=== PATIENT | male | born 1960 | race Caucasian/White ===

== ENCOUNTER 2017-07-08 07:29 | Outpatient (CLI) | payer BC ==
[~2017-07-08] VITALS: Ht 180.3 cm; Wt 77.3 kg
--- NOTE | ~2017-07-08 | HEMODYNAMI ---
PATIENT:MARIA FERNANDA DEVRIES MEDICAL RECORD: [id number] : 64 LOCATION:D.CAT ADMISSION DATE: 07/08/17 Generatedon:07/08/201710:18 Patient name: MARIA FERNANDA DEVRIES Patient #: [id number] SSN: : 1960 Date of study: 07/08/2017 Page: Of Hemodynamic Procedure Report Patient Data Patient Demographics Procedure consent was obtained First Name: MARIA FERNANDA Gender: Male Last Name: JAYCOB : 1960 [facility] Initial: MCKAY Age: 57 year(s) Patient #: [id number] Race: Unknown Additional ID: [id number] Contact details Address: [address] [place] [address] State: [place] City: [place] Zip code: [address] Past Medical History Allergies: No known allergies Admission Admission Data Admission Date: 07/08/2017 Admission Time: 7:29 Admit Source: Other Lab Results Lab Result Date: 07/08/2017 Lab Result Time: 8:00 Biochemistry Name Units Result Min Max BUN mg/dl 20 --(----)*- 7 18 Creatinine mg/dl 1.1 --(--*-)-- 0.6 1.3 CBC Name Units Result Min Max Hematocrit % 43.7 --(*---)-- 42 54 Hemoglobin g/dl 14.8 --(-*--)-- 13.5 17.5 Procedure Procedure Types Cath Procedure Diagnostic Procedure [facility] w/Coronaries Procedure Description Procedure Date Procedure Date: 07/08/2017 Procedure Start Time: 10:10 Procedure End Time: 10:18 Procedure Staff Name Function Boom Schultz MD Performing Physician Tony Ramon RT Monitor Buddy Rodrigez RN Nurse Ruth Melgar RT Scrub Procedure Data Cath Procedure Fluoroscopy Diagnostic fluoroscopy Total fluoroscopy Time: 0.9 time: 0.9 min min Diagnostic fluoroscopy Total fluoroscopy dose: 270 dose: 270 mGy mGy Contrast Material Contrast Material Type Amount (ml) Isovue 370 39 Entry Location Entry Primary Successful Side Size Upsize Upsize Entry Closure Succes sful Closure Location (Fr) 1 (Fr) 2 (Fr) Remarks Device Remarks Femoral Right 5 Fr Exoseal artery Estimated blood loss: 5 ml Diagnostic catheters Device Type Used For End Catheter Placement MULTIPACK Pigtail 5 Fr Procedure catheter MULTIPACK JL 4.0 5Fr Procedure catheter MULTIPACK 3DRC 5Fr Procedure catheter Procedure Complications No complications Procedure Medications Medication Administration Route Dosage Oxygen etCO2 Nasal cannula 2 l/min Heparin Flush Bag added to field 2 bags (1000units/500ml NS) 0.9% NaCl I.V. 100 ml/hr Fentanyl I.V. 50 mcg Versed I.V. 1 mg Fentanyl I.V. 50 mcg Versed I.V. 1 mg Hemodynamics Rest HGB: 14.8 (g/dl) Heart Rate: 52 (bpm) Snapshots Pre Cath Intra NCS Post Cath Vital Signs Time Heart Resp SPO2 etCO2 NIBP Rhythm Pain Sedation Rate (ipm) (%) (mmHg) (mmHg) Status Level (bpm) 9:51:58 48 17 97 36.7 122/71(82) NSR 0 (11) 10(A) , No pain 9:56:10 55 16 98 39.7 115/65(82) NSR 0 (11) 10(A) , No pain 10:00:20 55 17 98 39.7 117/63(83) NSR 0 (11) 10(A) , No pain 10:04:32 62 16 96 41.3 105/58(77) NSR 0 (11) 10(A) , No pain 10:08:40 61 17 96 42.7 99/56(93) NSR 0 (11) 9(A) , No pain 10:12:45 61 17 95 42 101/55(93) NSR 0 (11) 9(A) , No pain 10:16:41 65 16 96 45 106/56(77) NSR 0 (11) 9(A) , No pain Medications Time Medication Route Dose Verified Delivered Reason Notes Effe ctiveness by by 10:03:59 Oxygen etCO2 2 Boom Goodwin Per Nasal l/min Antoine Rodrigez RN physician cannula 10:04:06 Heparin Flush added 2 Boom Goodwin used for Bag to bags Antoine Rodrigez dish maker (1000units/500ml field NS) 10:04:15 0.9% NaCl I.V. 100 Boom Goodwin Per ml/hr Antoine Rodrigez RN physician 10:04:22 Fentanyl I.V. 50 Boom Goodwin for kirstin Rodrigez RN sedation 10:04:29 Versed I.V. 1 mg Boom Goodwin for Antoine Rodirgez RN sedation 10:10:09 Fentanyl I.V. 50 Boom Goodwin for kirstin Rodrigez RN sedation 10:10:12 Versed I.V. 1 mg Boom Goodwin for Antoine Rodrigez RN sedation Procedure Log Time Note 9:26:43 Tony Ramon RT(R) sent for patient. Start room use. 9:31:14 Admit Source: Other 9:31:41 Diagnostic Cath status Elective 9:31:44 Time tracking: Regular hours (M-F 7:00 - 5:00) 9:31:47 Plan of Care:Hemodynamics will remain stable., Cardiac rhythm will remain stable., Comfort level will be maintained., Respiratory function will remain adequate., Patient/ family verbilizes understanding of procedure., Procedure tolerated without complication., Recovers from procedure without complications.. 9:32:25 H&P Date Dictated: 06/12/2017 Within 30 days and on chart., H&P Addendum completed by physician on day of procedure. (MUST COMPLETE FOR ALL OUTPATIENTS). 9:33:48 Lab Result : BUN 20 mg/dl 9:33:48 Lab Result : Hemoglobin 14.8 g/dl 9:33:48 Lab Result : Creatinine 1.1 mg/dl 9:33:48 Lab Result : Hematocrit 43.7 % 9:37:14 Lab results completed and on chart. 9:40:08 Patient received from Pre/Post Procedure Room to CCL 2 Alert and oriented. Tansferred to table in Supine position. 9:40:10 Warm blankets applied, and calvin hugger turned on for patient comfort. 9:40:11 Correct patient and procedure confirmed by team. 9:40:16 Signed procedure consent form obtained from patient. 9:40:17 ECG and BP/O2 sat monitors applied to patient. 9:40:18 Pre-procedure instructions explained to patient. 9:40:18 Pre-op teaching completed and patient verbalized understanding. 9:40:20 Family in waiting room. 9:40:21 Patient NPO since Midnight. 9:40:26 Patient allergic to No known allergies 9:50:53 Vital chart was started 9:50:55 Full Disclosure recording started 9:52:20 Baseline sample Acquired. 9:52:25 Rhythm: sinus rhythm 9:52:29 Is the patient allergic to Iodine/contrast media? No. 9:52:30 Is patient on blood thinner?Yes 9:52:32 ACC The patient was administered the following blood thiners within the last 24 hours: ACCPlavix 9:52:34 Patient diabetic? No. 9:52:38 Previous problem with sedation/anesthesia? No ? 9:52:39 Snore? Yes 9:52:40 Sleep apnea? No 9:52:40 Deviated septum? No 9:52:41 Opens mouth fully? Yes 9:52:42 Sticks out tongue? Yes 9:52:43 Airway obstruction? No ? 9:52:45 Dentures? No ? 9:52:48 Pre procedure: right dorsailis pedis pulse 2+ Normal; easily identifiable; not easily obliterated 9:52:51 Modified Deshawn's test Ulnar > 7 seconds. 9:52:53 Patient pain scale 0/10 ?. 9:52:56 IV patent on arrival in left forearm with 0.9% NaCl at O. 9:53:07 Right groin area was prepped with chlora-prep and draped in sterile fashion 9:53:08 Alarms reviewed by R. N. 9:53:09 Sharps counted by scrub and verified by R.N. 9:53:13 Use device set Femoral Dx 9:53:14 ACIST Syringe (75056) opened to sterile field. 9:53:15 Bag Decanter (2002) opened to sterile field. 9:53:15 Medline Cath Pack ([id number]) opened to sterile field. 9:53:17 ACIST Hand Control (72954) opened to sterile field. 9:53:17 ACIST Manifold (58915) opened to sterile field. 9:53:18 Tegaderm 4 x 4 (1626W) opened to sterile field. 9:53:21 DIAGNOSTIC WIRE .035 260cm J wire (704657) opened to sterile field. 9:53:22 DIAGNOSTIC Multipack 5Fr catheter set (NU4873) opened to sterile field. 9:53:23 SHEATH Prelude 5Fr 0.035 ([id number]-0K-00-035) opened to sterile field. 10::54 Physician arrived ::54 --------ALL STOP TIME OUT------ 10::55 Final Timeout: patient, procedure, and site verified with staff and physician. All members of the team are in agreement. 10::57 Right groin site verified by team. 10::59 Physical assessment completed. ASA score P 2 - A patient with mild systemic disease as per Boom Schultz MD. 10:03:02 Sedation plan: IV Moderate Sedation Medication:Versed, Fentanyl 10:03:05 Zero performed for pressure channel P1 10::09 Zero performed for pressure channel P1 10::59 Oxygen 2 l/min etCO2 Nasal cannula was administered by Buddy Rodrigez RN; Per physician; 10:04:06 Heparin Flush Bag (1000units/500ml NS) 2 bags added to field was administered by Buddy Rodrigez RN; used for procedure; 10:04:15 0.9% NaCl 100 ml/hr I.V. was administered by Buddy Rodrigez RN; Per physician; 10:04:22 Fentanyl 50 mcg I.V. was administered by Buddy Rodrigez RN; for sedation; 10:04:29 Versed 1 mg I.V. was administered by Buddy Rodrigez RN; for sedation; 10:10:09 Fentanyl 50 mcg I.V. was administered by Buddy Rodrigez RN; for sedation; 10:10:12 Versed 1 mg I.V. was administered by Buddy Rodrigez RN; for sedation; 10:10:36 Procedure started. 10:10:41 Local anesthetic to right femoral artery with Lidocaine 2% by Boom Schultz MD.INITIAL ACCESS ONLY 10:11:09 A 5 Fr sheath was inserted into the Right Femoral artery 10:11:29 A MULTIPACK Pigtail 5 Fr catheter was advanced over the wire and used for Procedure. 10::52 LV gram done using MALONEY 10::54 Injector settings: Ml/sec: 10., Volume: 20, 10:12:23 EF : 50 % 10:12:47 Catheter exchanged over wire. 10:12:52 A MULTIPACK JL 4.0 5Fr catheter was advanced over the wire and used for Procedure. 10:13:10 LCA angiography performed. 10:13:26 Catheter exchanged over wire. 10:13:30 A MULTIPACK 3DRC 5Fr catheter was advanced over the wire and used for Procedure. 10:14:04 RCA angiography performed. 10:14:10 Catheter removed. 10:14:12 EXOSEAL 5Fr (EX500) opened to sterile field. 10:14:24 Sheath removed intact; hemostasis achieved with Exoseal to the Right Femoral artery. 10:14:26 Procedure ended.(Physican Out) 10:15:56 Fluoroscopy time 00.90 minutes. 10:16:02 Fluoroscopy dose: 270 mGy 10:16:02 Flurop Dose total: 270 10:16:07 Contrast amount:Isovue 370 39ml. 10:16:34 Sharps counted by scrub and verified by R.N. 10:16:35 Insertion/operative site no bleeding no hematoma. 10:16:37 Post-op/insertion site Right Femoral artery dressed using a 4 x 4 and Tegaderm. 10:16:42 Post right femoral artery:stable, soft, clean and dry 10:16:45 Post Procedure Pulses reassessed and unchanged 10:16:47 Post-procedure physical assessment completed. ASA score P 2 - A patient with mild systemic disease as per Boom Schultz MD. 10:16:49 Post procedure rhythm: unchanged. 10:16:51 Estimated blood loss: 5 ml 10:16:53 Post procedure instruction explained to patient.Patient verbalizes understanding. 10:16:53 Patient needs reinforcement of post procedure teaching. 10:17:46 Procedure and supply charges have been captured, reviewed, submitted and are correct. 10:17:48 Procedure Complication : No complications 10:17:50 Vital chart was stopped 10:17:51 See physician's report for complete and final results. 10:17:53 Report given to Pre/Post Procedure Room. 10:17:56 Patient transfered to Pre/Post Procedure Room with Stretcher. 10:18:00 Procedure ended. 10:18:00 Full Disclosure recording stopped 10:18:05 End room use (Document Last) Device Usage Item Name Manufacture Quantity Catalog Number Hospital Part Current M inimal Lot# / Charge Number Stock Stock Serial# Code ACIST Syringe Acist 1 82653 151271 377576 211452 2 0 (72316) [employer] Bag Decanter Microtek 1 2001S 811829 31652 227781 5 (2001S) Medical Inc. Medline Cath Cardinal 1 [id number] 110576 49131 511200 5 Pack Health ([id number]) ACIST Hand Acist 1 73141 359959 667937 426327 5 Control (12715) [employer] ACIST Manifold Acist 1 42350 734857 276520 072594 5 (67268) [employer] Tegaderm 4 x 4 3M 1 1626W 820244 560985 455891 5 (1626W) DIAGNOSTIC WIRE [place] 1 208314 852810 957037 413924 3 0 .035 260cm J wire (073295) DIAGNOSTIC Cardinal 1 [id number] 728934 24271 902700 3 0 Multipack 5Fr Health catheter set ([id number]) SHEATH Prelude Merit 1 [id number]-[id number] 973648 289625 128056 5 5Fr 0.035 Medical (QIR-5Q-51-035) MULTIPACK Cardinal 1 949645 5 Pigtail 5 Fr Health catheter MULTIPACK JL Cardinal 1 [id number] 5 4.0 5Fr Health catheter MULTIPACK 3DRC Cardinal 1 930561 5 5Fr catheter Health EXOSEAL 5Fr Cardinal 1 EX500 066110 113761 472230 1 0 (EX500) Health Signature Audit [place] Stage Time Signature Unsigned Intra-Procedure 07/08/2017 Tony Ramon 10:18:42 AM RT(R) Signatures Monitor : Tony Ramon RT Signature : Date : Time : [facility] [address] [place] [address]
--- NOTE | ~2017-07-08 | OP ---
PATIENT NAME: MARIA FERNANDA DEVRIES MEDICAL RECORD: [id number] :64 LOCATION:D.CAT ADMISSION DATE: SURGEON: MARILIN LUIS MD DATE OF OPERATION: 07/08/2017 PROCEDURES: 1. Left heart catheterization. 2. Selective coronary angiography. 3. Left ventriculogram. INDICATION: Chest pain compatible with angina. PROCEDURE IN DETAIL: After informed consent was obtained and after detailed explanation of the risks, benefits as well as alternative therapies, the patient elected to proceed with angiogram and heart catheterization. The right femoral area is prepped and draped in normal sterile fashion. Right femoral artery was cannulated via modified Seldinger technique with placement of 6-Syriac sheath. All catheters exchanged through this sheath. FINDINGS: The left ventriculogram performed in standard 30-degree MALONEY view reveals good cardiac wall motion throughout all segments. Overall ejection fraction estimated 60%. SELECTIVE CORONARY ANGIOGRAPHY: Left main, left anterior descending, left circumflex, right coronary are all smooth-walled vessels with no angiographic evidence of coronary artery disease. OVERALL IMPRESSION: 1. No angiographic evidence of coronary artery disease. 2. Normal left heart pressures. 3. Normal left ventricular systolic function. Chest pain is noncardiac in etiology. No further cardiac workup was ascertained. TRANSINT:[id number] Voice Confirmation ID: [id number] DOCUMENT ID: [id number] MARILIN LUIS MD at 1630 CC: [id number] DICTATION DATE: 07/08/17 1017 AIR BRAKE MECHANIC: 07/08/17 1139 DEP CLI 07/08/17 [place] [id number] [place] [id number]
[2017-07-08] MEDS ORDERED: PLAVIX75 MG PO (07:45)
[2017-07-08] MEDS ORDERED: GABAPENTIN100 MG PO (07:48)
[2017-07-08] MEDS ORDERED: COZAAR50 MG PO (07:49)
[2017-07-08] MEDS ORDERED: HCTZ25 MG PO (07:49)
[2017-07-08 07:58] VITALS: BP 128/70; Ht 180.3 cm; Wt 77.3 kg
[2017-07-08 08:05] LABS: BASOPHILS 0.5 % (0-2); EOSINOPHILS 5.3 % (0-7); HEMATOCRIT 43.7 % (42.0-54.0); HEMOGLOBIN 14.8 g/dL (13.5-17.5); IMMATURE GRANULOCYTES 0.2 % (0-5); MCH 30.4 pg (26.0-34.0); MCHC 33.9 g/dL (31.0-37.0); MCV 89.7 fL (80.0-100.0); MEAN PLATELET VOLUME 9.7 fL (7.4-10.4); MONOCYTES 9.9 % (2-11); NEUTROPHILS 63.1 % (40-80); PLATELET COUNT 200 10x3/uL (130-400); RBC 4.87 10x6/uL (4.20-6.10); RDW 12.7 % (11.5-14.5); WBC 5.7 10x3/uL (4.8-10.8)
[2017-07-08 08:19] LABS: ANION GAP 8.1 mmol/L (8-16); CALCIUM 9.2 mg/dL (8.5-10.1); CARBON DIOXIDE 32.9 mmol/L (21.0-32.0); CREATININE - SERUM 1.1 mg/dL (0.6-1.3)
== END 2017-07-08 12:20 | disposition home or self-care (01) ==
LOC: D.CATH 07:29
PROVIDERS: Internal Medicine Interventional Cardiology
DX: R07.89 Other chest pain (principal); Z01.812 Encounter for preprocedural laboratory examination